=== PATIENT | female | born 2000 | race Hispanic/Latino ===

== ENCOUNTER 2024-02-22 08:11 | Emergency (ER) | payer OTHER, SELFPAY ==
[2024-02-22] MEDS ORDERED: Ibuprofen 100 MG/5 ML UDCUP ONE (08:59)
[2024-02-22 10:30] LABS: MONO NEGATIVE CONTROL ZONE White (Negative) (White); MONO POSITIVE CONTROL Pink Line (Positive) (PINK/RED); Mononucleosis NEGATIVE (NEGATIVE)
[2024-02-22] MEDS ORDERED: Dexamethasone 10 MG/ML VIAL ONE (10:34)
== END 2024-02-22 10:45 | disposition home or self-care (01) ==
LOC: ERS 08:11
DX: J02.8 Acute pharyngitis due to other specified organisms (principal)
CPT/HCPCS: 36415; 86308; 87081; 87428; 87430; 99283; J1100

== ENCOUNTER 2024-10-18 21:20 | Emergency (ER) | payer OTHER ==
[2024-10-18] MEDS ORDERED: Ondansetron PF 4 MG/2 ML Vial ONE (22:04)
[2024-10-18 22:05] LABS: #Basophils 0.09 10x3/uL (0.0-0.2); #Eosinophils 0.17 10x3/uL (0.0-0.7); #Monocytes 1.39 10x3/uL (0.11-0.59); #Neutrophils 9.33 10x3/uL (1.40-6.50); %Basophils 0.7 % (0.0-1.0); %Eosinophils 1.2 % (0.0-10.0); %Lymphocytes 19.0 % (21.0-51.0); %Monocytes 10.2 % (0.0-10.0); %Neutrophils 68.5 % (42.0-75.0); Hematocrit 44.9 % (36.0-47.0); Hemoglobin 14.6 g/dL (12.0-16.0); Mean Corpuscular Hemoglobin 28.5 pg (27.0-31.0); Mean Corpuscular Volume 87.7 fL (78.0-98.0); Platelet Count 377 10x3/uL (130-400); Red Blood Cell (RBC) Count 5.12 mill/uL (4.20-5.40); White Blood Cell (WBC) Count 13.62 10x3/uL (4.8-10.8)
[2024-10-18 22:08] LABS: CAUTI Indications for Culture Dysuria,urgency,freq; Glucose, Urine (Dipstick) Normal (Negative); Leukocyte Negative Leu/uL (Negative); Protein, Urine (Dipstick) Negative (Neg-Trace); RBC/HPF 0-3 HPF (0-3); Specific Gravity, Urine 1.028 (1.002-1.036); WBC/HPF 0-3 HPF (0-3)
[2024-10-18 22:09] LABS: Bacteria/HPF 1+ HPF (None Seen)
[2024-10-18 22:10] LABS: Urine Culture Reflex No No
[2024-10-18 22:12] LABS: BHCG - Serum Negative (NEGATIVE); Pregs Control Background? CLEAR/WHITE (CLR/WHITE); Pregs Control Bar Appear? YES (CONTROL BAR)
[2024-10-18 22:24] LABS: ALT (SGPT) 31 U/L (Less than 34); AST (SGOT) 34 U/L (11-34); Albumin 4.3 g/dL (3.1-4.5); Alkaline Phosphatase 112 U/L (40-110); Anion Gap 16 mmol/L (10-20); BUN (Urea Nitrogen) 14 mg/dL (7.0-18.7); Bilirubin, Total 0.4 mg/dL (0.3-1.2); Calc. Creatinine Clearance 0 mL/min (70-130); Calcium 9.6 mg/dL (7.8-10.44); Carbon Dioxide 23 mmol/L (22-29); Chloride 105 mmol/L (98-107); Globulin 3.1 g/dL (2.4-3.5); Glucose 97 mg/dL (70-105); Potassium 3.8 mmol/L (3.5-5.1); Sodium 140 mmol/L (136-145)
== END 2024-10-18 23:04 | disposition home or self-care (01) ==
LOC: ERS 21:20
DX: R11.2 Nausea with vomiting, unspecified (principal); R10.30 Lower abdominal pain, unspecified
CPT/HCPCS: 80053; 81001; 83690; 84703; 85025; 96361; 96374; J2405